=== PATIENT | female | born 1965 | race Two or more races ===

== ENCOUNTER 2023-02-08 13:08 | Observation (INO) | payer BC ==
[2023-02-08] MEDS ORDERED: SODIUM CHLORIDE 0.9% 500 ML INFUS.BAG IV ONE ×2 (14:26→18:05)
[2023-02-08 14:58] LABS: BASO % 0.5 % (0-2.0); EOS % 0.2 % (0-4.5); HEMATOCRIT 38.8 % (32.4-45.2); HEMOGLOBIN 12.5 GM/dL (10.7-15.3); LYMPH % 15.3 % (8-40); MCH 24.4 pg (25.7-33.7); MCHC 32.1 g/dl (32.0-36.0); MEAN CELL VOLUME 76.2 fl (80-96); MEAN PLT VOLUME 8.6 fl (7.5-11.1); MONO % 18.4 % (3.8-10.2); NEUT % 65.6 % (42.8-82.8); PLATELET COUNT 410 10^3/uL (134-434); RDW 15.8 % (11.6-15.6); WHITE BLOOD COUNT 7.6 K/mm3 (4.0-10.0)
[2023-02-08 15:04] LABS: EPI CELLS >36 /uL (0-25.1); HYALINE CASTS 23 /uL (0-3.1); URINE APPEARANCE CLOUDY; URINE BACTERIA 1622 /uL (0-1359); URINE BILIRUBIN NEGATIVE (NEGATIVE); URINE COLOR DK YELLOW; URINE GLUCOSE (UA) NEGATIVE (NEGATIVE); URINE KETONE TRACE (NEGATIVE); URINE LEUK ESTERASE 1+ (NEGATIVE); URINE NITRITE NEGATIVE (NEGATIVE); URINE PROTEIN 2+ (NEGATIVE); URINE UROBILINOGEN 0.2 mg/dL (0.2-1.0); URINE WBC 209 /uL (0-25.8)
[2023-02-08 15:05] LABS: INR 1.13 (0.83-1.09); PROTHROMBIN TIME (PATIENT) 13.1 SEC (9.7-13.0)
[2023-02-08 15:07] LABS: ACTIVATED PTT 20.2 SECONDS (25.2-36.5)
[2023-02-08 15:26] LABS: CHLORIDE 99 mmol/L (98-107); SODIUM 137 mmol/L (136-145); URINE RBC 64 /uL (0-23.9)
[2023-02-08 15:28] LABS: CALCIUM 9.3 mg/dL (8.5-10.1); CO2 25 mmol/L (21-32)
[2023-02-08 15:29] LABS: ALBUMIN 3.5 g/dl (3.4-5.0); GLUCOSE,RANDOM 179 mg/dL (74-106)
[2023-02-08 15:32] LABS: CREATININE 1.4 mg/dL (0.55-1.3); SGOT/AST 46 U/L (15-37); SGPT/ALT 69 U/L (13-61)
[2023-02-08 15:33] LABS: BILIRUBIN,TOTAL 0.4 mg/dL (0.2-1); TOT PROT 7.4 g/dl (6.4-8.2)
[2023-02-08 15:34] LABS: ALK PHOS 104 U/L (45-117)
[2023-02-08 15:35] LABS: ANION GAP 13 MMOL/L (8-16); POTASSIUM 2.5 mmol/L (3.5-5.1)
[2023-02-08] MEDS ORDERED: POTASSIUM CHLORIDE ORAL LIQUID 20 MEQ/15 ML PO ONE (15:43)
[2023-02-08] MEDS ORDERED: POTASSIUM CHLORIDE ORAL LIQUID 20 MEQ/15 ML ONE (15:52)
[2023-02-08] MEDS ORDERED: KCL 10 MEQ IVPB 10 MEQ/100 ML INFUS.BAG IVPB ONE (15:52)
[2023-02-08] MEDS: KCL 10 MEQ IVPB 10 MEQ/100 ML INFUS.BAG IVPB SCH ×3 (17:30→21:32)
[2023-02-08] MEDS ORDERED: POTASSIUM CHLORIDE TABS 20 MEQ TABLET.ER (FP) PO ONE ×2 (19:20→19:34)
[2023-02-08] MEDS ORDERED: SODIUM CHLORIDE 1,000 ML IV SCH (19:30)
[2023-02-08] MEDS ORDERED: KCL 10 MEQ IVPB 20 MEQ/200 ML INFUS.BAG IVPB ONE (19:34)
[2023-02-08] MEDS: HEPARIN NA (PORCINE) 5,000 UNITS/ML 1ML VIAL SQ SCH (23:25)
[2023-02-08 23:49] LABS: POTASSIUM 3.6 mmol/L (3.5-5.1)
[2023-02-08 23:53] LABS: BLOOD UREA NITROGEN 23.3 mg/dL (7-18); CALCIUM 8.5 mg/dL (8.5-10.1)
[2023-02-08 23:56] LABS: CREATININE 0.8 mg/dL (0.55-1.3)
[2023-02-09 00:25] VITALS: BMI 29.5
[2023-02-09] MEDS ORDERED: POTASSIUM CHLORIDE ORAL LIQUID 20 MEQ/15 ML PO ONE (03:30)
[2023-02-09] MEDS: HEPARIN NA (PORCINE) 5,000 UNITS/ML 1ML VIAL SQ SCH (06:23)
[2023-02-09 08:25] LABS: POTASSIUM 3.6 mmol/L (3.5-5.1)
[2023-02-09 08:29] LABS: CALCIUM 8.5 mg/dL (8.5-10.1)
[2023-02-09 08:30] LABS: BLOOD UREA NITROGEN 17.7 mg/dL (7-18); MAGNESIUM 2.4 mg/dL (1.8-2.4)
[2023-02-09 08:32] LABS: PHOSPHOROUS 2.2 mg/dL (2.5-4.9)
[2023-02-09 08:33] LABS: CREATININE 0.7 mg/dL (0.55-1.3)
[2023-02-09 08:34] LABS: BILIRUBIN,TOTAL 0.3 mg/dL (0.2-1); TOT PROT 5.8 g/dl (6.4-8.2)
[2023-02-09 08:36] LABS: ALBUMIN 2.8 g/dl (3.4-5.0)
[2023-02-09 08:40] LABS: HEMATOCRIT 31.1 % (32.4-45.2); HEMOGLOBIN 10.2 GM/dL (10.7-15.3); MCH 24.1 pg (25.7-33.7); MCHC 32.6 g/dl (32.0-36.0); MEAN CELL VOLUME 73.9 fl (80-96); MEAN PLT VOLUME 8.1 fl (7.5-11.1); PLATELET COUNT 326 10^3/uL (134-434); RBC 4.21 M/mm3 (3.60-5.2); RDW 16.2 % (11.6-15.6); WHITE BLOOD COUNT 6.8 K/mm3 (4.0-10.0)
[2023-02-09 09:37] LABS: ANISOCYTOSIS 0; MACROCYTOSIS 0
[2023-02-09] MEDS ORDERED: HYDROCHLOROTHIAZIDE 12.5 MG CAPSULE (FP) PO SCH (10:00)
[2023-02-09 10:11] VITALS: BP 106/54; PULSE 81; RESP 18; TEMP 98.2
== END 2023-02-09 15:06 | disposition home or self-care (01) ==
LOC: JER 13:08 → JERBED 17:27 → J4W 22:53
PROVIDERS: ADMIT Internal Medicine; ATTEND Internal Medicine
PROC: 3E023GC Introduction of Other Therapeutic Substance into Muscle, Percutaneous Approach (ICD-10-PCS; principal; 2023-02-08)
PROC: 3E033GC Introduction of Other Therapeutic Substance into Peripheral Vein, Percutaneous Approach (ICD-10-PCS; 2023-02-08)
PROC: 3E0337Z Introduction of Electrolytic and Water Balance Substance into Peripheral Vein, Percutaneous Approach (ICD-10-PCS; 2023-02-08)
DX: N17.9 Acute kidney failure, unspecified (principal); E87.6 Hypokalemia; I10 Essential (primary) hypertension; D36.9 Benign neoplasm, unspecified site; R74.01 Elevation of levels of liver transaminase levels; G43.909 Migraine, unspecified, not intractable, without status migrainosus; Z29.8 Encounter for other specified prophylactic measures; Z88.0 Allergy status to penicillin
CPT/HCPCS: 36415; 76705-TC; 80048; 80053; 81003; 82272; 83735; 84100; 84443; 84484; 85025; 85610; 85730; 86850; 86900; 86901; 87086; 93005; 93010; 99285-25; G0378; J1644